=== PATIENT | female | born 1980 | race Native Hawaiian/Other Pacific Islander ===

== ENCOUNTER 2023-05-03 13:11 | Outpatient (CLI) | payer OTHER, SELFPAY | END 2023-05-03 13:12 | disposition home or self-care (01) | PROVIDERS: PCP Family Medicine; Visit Provider Physician Assistant | DX: R23.2 Flushing (principal) | CPT/HCPCS: 83001; 84443; 87086 ==

== ENCOUNTER 2024-08-15 07:56 | Outpatient (CLI) | payer BC, SELFPAY ==
--- NOTE | 2024-08-15 08:15 | CRLHL7_ITS ---
For Patients: As a result of the Century Cures Act, medical imaging exams and procedure reports are released immediately into your electronic medical record. You may view this report before your referring provider. If you have questions, please contact your health care provider. BILATERAL DIGITAL SCREENING MAMMOGRAM WITH COMPUTER-AIDED DETECTION AND TOMOSYNTHESIS CLINICAL HISTORY: Routine screening exam. COMPARISON: None. TECHNIQUE: Digital mammogram in CC and MLO projections including computer-aided detection (CAD). Tomosynthesis was used in this interpretation. BREAST COMPOSITION: There are scattered areas of fibroglandular density. FINDINGS: RIGHT Breast: No suspicious findings. LEFT Breast: Spiculated mass lateral LEFT breast 6 cm from the nipple with associated architectural distortion. IMPRESSION: LEFT breast asymmetry/mass. RECOMMENDATIONS: Additional mammographic views of the LEFT breast including 3D spot compression CC/MLO. LEFT breast ultrasound may also be required. BI-RADS Category 0: Incomplete: Need Additional Imaging Evaluation and/or Prior Mammograms for Comparison [facility] will contact the patient for follow-up. A lay language report of this examination will be provided to the patient. Dictated by Rafy Castillo MD @ 08/20/2024 9:46:33 AM jj/Dictated by: Rafy Castillo MD @ 08/20/2024 9:47:00 AM (Electronically Signed)
== END 2024-08-15 07:57 | disposition home or self-care (01) ==
LOC: MAMMO 07:59
PROVIDERS: PCP Family Medicine; Visit Provider Family Medicine
DX: Z12.31 Encounter for screening mammogram for malignant neoplasm of breast (principal); N63.20 Unspecified lump in the left breast, unspecified quadrant
CPT/HCPCS: 77063; 77067

== ENCOUNTER 2024-08-28 07:29 | Outpatient (CLI) | payer BC, SELFPAY ==
--- NOTE | 2024-08-28 | CRLHL7_ITS ---
For Patients: As a result of the Century Cures Act, medical imaging exams and procedure reports are released immediately into your electronic medical record. You may view this report before your referring provider. If you have questions, please contact your health care provider. ULTRASOUND-GUIDED LEFT AXILLARY LYMPH NODE BIOPSY CLINICAL HISTORY: Slightly enlarged LEFT axillary lymph node in the setting of a suspicious LEFT breast mass. COMPARISON STUDIES: 08/28/2024. TECHNIQUE: Real-time ultrasound with image documentation was used for targeting the LEFT axillary lesion. Core biopsy specimens were obtained using an automated gun with an 18-gauge biopsy needle. CONSENT and TIME OUT: The procedure, risks, and alternatives were explained to the patient and a consent was signed. [place] Protocol was followed including pre-procedure verification that relevant information/documentation was available, reviewed and properly matched to the patient; consent accurate and complete; and equipment and supplies available. Time Out was conducted just prior to starting procedure to verify the four required elements: patient identity, correct side/site marked (if applicable), procedure, relevant images/results properly labeled and displayed (if applicable). PROCEDURE: The patient was positioned supine on the ultrasound table. The LEFT axilla was prepped with ChloraPrep. 5 cc 1 percent lidocaine used for local anesthesia. Core samples were obtained. The specimens were placed in 10% formalin and sent to the pathology department. Pressure was held on the biopsy site until all bleeding subsided. The skin incision was closed with Steri-Strips. An ice pack was positioned over the biopsy site. Post-biopsy instructions were reviewed with the patient, and a written copy was given to her. LATERALITY: LEFT axilla. LESION: Ovoid lymph node with slightly prominent cortex in the LEFT axilla. SUSPICION FOR MALIGNANCY: Intermediate. NUMBER OF SAMPLES: 5. BIOPSY CLIP SHAPE: Oval. PROXIMITY OF CLIP TO TARGET: Within the lesion. IMPRESSION: Ultrasound-guided LEFT axillary lymph node biopsy. When the pathology report is available, an addendum to this report will be made. ACR not applicable Dictated by Rafy Castillo MD @ 08/28/2024 12:15:06 PM marco aj/Dictated by: Rafy Castillo MD @ 08/28/2024 12:15:00 PM (Electronically Signed)
--- NOTE | 2024-08-28 07:45 | CRLHL7_ITS ---
For Patients: As a result of the Cures Act, medical imaging exams and procedure reports are released immediately into your electronic medical record. You may view this report before your referring provider. If you have questions, please contact your health care provider. DIGITAL DIAGNOSTIC LEFT MAMMOGRAM USING TOMOSYNTHESIS AND COMPUTER-AIDED DETECTION LEFT BREAST ULTRASOUND CLINICAL HISTORY: LEFT breast mass/asymmetry. COMPARISON: 08/15/2024. TECHNIQUE: Digital LEFT mammogram in two projections. Tomosynthesis and CAD used in this interpretation. Real-time ultrasound imaging of LEFT breast with imaging documentation. BREAST COMPOSITION: There are scattered areas of fibroglandular density. FINDINGS: 3D spot compression CC/MLO LEFT breast mammogram images submitted. Spiculated mass with architectural distortion in the lateral LEFT breast again noted located 4 cm from the nipple. No suspicious calcifications. Targeted LEFT breast ultrasound performed at 3 o`clock 4 cm from the nipple, in this location, there is a heterogeneous solid mass with very hypoechoic internal echotexture centrally measuring 2.1 x 1.3 x 2.5 cm, located at mid depth. Mildly prominent LEFT axillary lymph node is present measuring 1.8 x 0.5 x 1.3 cm with the cortex measuring 3.2 millimeters. IMPRESSION: 1. Suspicious mass LEFT breast 3 o`clock 4 cm from the nipple measuring 2.5 cm. 2. Mildly suspicious LEFT axillary lymph node measuring 1.8 cm. RECOMMENDATIONS: Ultrasound-guided core needle biopsy of the breast mass and LEFT axillary lymph node. Results and recommendations discussed with the patient. Biopsy was performed subsequently. BI-RADS Category 5: Highly suggestive of malignancy A lay language report of this examination will be provided to the patient. Dictated by: Rafy Castillo MD @08/28/2024 9:26:21 AM /Dictated by: Rafy Castillo MD @ 08/28/2024 9:17:00 AM (Electronically Signed)
--- NOTE | 2024-08-28 08:15 | CRLHL7_ITS ---
For Patients: As a result of the Cures Act, medical imaging exams and procedure reports are released immediately into your electronic medical record. You may view this report before your referring provider. If you have questions, please contact your health care provider. PLEASE SEE DIGITAL DIAGNOSTIC LEFT MAMMOGRAM PERFORMED SAME DAY CRL:[email or web address]/Dictated by: Rafy Castillo MD @ 08/28/2024 9:16:00 AM (Electronically Signed)
--- NOTE | 2024-08-28 08:15 | CRLHL7_ITS ---
For Patients: As a result of the Century Cures Act, medical imaging exams and procedure reports are released immediately into your electronic medical record. You may view this report before your referring provider. If you have questions, please contact your health care provider. ULTRASOUND-GUIDED BREAST BIOPSY AND POST-BIOPSY DIGITAL MAMMOGRAM FOR BIOPSY MARKER PLACEMENT CLINICAL HISTORY: Suspicious mass. COMPARISON STUDIES: 08/15/2024. TECHNIQUE: Real-time ultrasound with image documentation was used for targeting the breast lesion. Core biopsy specimens were obtained using an automated gun with an 18-gauge biopsy needle. Post-biopsy CC and ML digital mammograms were obtained to document position of the biopsy marker. CONSENT and TIME OUT: The procedure, risks, and alternatives were explained to the patient and a consent was signed. [place] Protocol was followed including pre-procedure verification that relevant information/documentation was available, reviewed and properly matched to the patient; consent accurate and complete; and equipment and supplies available. Time Out was conducted just prior to starting procedure to verify the four required elements: patient identity, correct side/site marked (if applicable), procedure, relevant images/results properly labeled and displayed (if applicable). PROCEDURE: The patient was positioned supine on the ultrasound table. The breast was prepped with ChloraPrep. 8 cc of 1 percent lidocaine was used for local anesthesia. Core samples were obtained. A sterile metal biopsy clip was placed percutaneously to rosalina the lesion position within the breast. The specimens were placed in 10% formalin and sent to the pathology department. Pressure was held on the biopsy site until all bleeding subsided. The skin incision was closed with Steri-Strips. An ice pack was positioned over the biopsy site. Post-biopsy instructions were reviewed with the patient, and a written copy was given to her. LATERALITY: LEFT breast. LESION: Solid spiculated hypoechoic mass with distal acoustic shadowing measuring 2.1 x 1.3 x 2.5 cm at 3 o`clock 4 cm from the nipple. SUSPICION FOR MALIGNANCY: High. NUMBER OF SAMPLES: 5. BIOPSY CLIP SHAPE: HydroMARK. PROXIMITY OF CLIP TO TARGET: Within the lesion. IMPRESSION: Ultrasound-guided breast biopsy. When the pathology report is available, an addendum to this report will be made. ACR not applicable Dictated by: Rafy Castillo MD @08/28/2024 9:16:53 AM jj/Dictated by: Rafy Castillo MD @ 08/28/2024 11:00:00 AM (Electronically Signed)
--- NOTE | 2024-08-28 08:45 | CRLHL7_ITS ---
For Patients: As a result of the Cures Act, medical imaging exams and procedure reports are released immediately into your electronic medical record. You may view this report before your referring provider. If you have questions, please contact your health care provider. PLEASE SEE ULTRASOUND-GUIDED LEFT BREAST AND AXILLARY LYMPH NODE BIOPSY PERFORMED SAME DAY CRL:[email or web address]/Dictated by: Rafy Castillo MD @ 08/28/2024 9:26:00 AM (Electronically Signed)
== END 2024-08-28 07:30 | disposition home or self-care (01) ==
LOC: MAMMO 07:30
PROVIDERS: PCP Family Medicine; Visit Provider Physician Assistant
DX: N63.20 Unspecified lump in the left breast, unspecified quadrant (principal); C50.912 Malignant neoplasm of unspecified site of left female breast; R92.8 Other abnormal and inconclusive findings on diagnostic imaging of breast
CPT/HCPCS: 19083; 38505; 76642; 76942; 77065; 88305; 88360; 88361; 88377; A4648; A4649; G0279

== ENCOUNTER 2024-09-06 08:04 | Outpatient (CLI) | payer BC, SELFPAY ==
--- NOTE | 2024-09-06 08:15 | CRLHL7_ITS ---
For Patients: As a result of the 21st Century Cures Act, medical imaging exams and procedure reports are released immediately into your electronic medical record. You may view this report before your referring provider. If you have questions, please contact your health care provider. BILATERAL BREAST MRI WITHOUT AND WITH GADOLINIUM CLINICAL HISTORY: 43-year-old with newly diagnosed palpable carcinoma of the left breast at the 3 o`clock location, 4 cm from nipple. Spiculated mass on mammography. Measured 2.1 x 1.3 x 2.5 cm on ultrasound. Ultrasound-guided needle core biopsy of the mass and biopsy of a 1.8 cm left axillary lymph node with prominent cortex were performed on 08/28/2024. 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 Pathology of left axillary lymph node showed benign reactive lymph node. INDICATION FOR BREAST MRI: Staging of newly diagnosed breast cancer and screening of contralateral breast. Regional lymph nodes will also be assessed. COMPARISON STUDIES: Mammogram 08/14/2024. Mammogram and ultrasound dated 08/28/2024. CONTRAST: 20 cc Dotarem TECHNIQUE: The patient was positioned prone using a breast coil. Multiple imaging sequences were obtained using 1-1.5 mm thick slices with no gap. The image sequences include T2-weighted STIR in the axial plane, T1-weighted nonfat-saturated gradient echo in the axial plane, pre- and post-contrast T1-weighted FLASH 3D with fat suppression in the axial plane, and T1-weighted FLASH high resolution 3D with fat suppression in the sagittal plane. Image post-processing was performed on a [employer] workstation. Complex 3D rendering including maximum intensity projections (MIPS) and volumetric renderings were obtained to optimize visualization of the extent of pathology and relationship to the nipple, skin, and chest wall. This aids in determining feasibility of breast conservation surgery. Subtraction, multiplanar reconstruction, mean curve determination, and angiogenesis mapping were also performed. The study was technically adequate. FINDINGS: Amount of Fibroglandular Tissue: Scattered fibroglandular tissue. Breast Background Enhancement: Mild RIGHT Breast: No suspicious mass or non-mass enhancement. LEFT Breast: -Left 3 o`clock, 4 cm from nipple: 2.2 x 1.5 x 1.4 cm irregular mass with heterogeneous enhancement characteristics including rapid initial uptake and washout kinetics correlates to biopsied mass with associated marker clip. -There is 0.7 cm thin linear non-mass enhancement extending superiorly from the mass at the level of the clip. Possible post biopsy change or DCIS. -There is non-mass enhancement along the lateral aspect of the mass, extending inferiorly and towards the skin. Hyperintense on T2 and isointense to fat on T1 without fat-sat. Imaging findings are consistent with post biopsy changes. Lymph Nodes: Left axilla: 3 lymph nodes with mildly prominent cortices, including the biopsied reactive lymph node with associated biopsy marker clip, measuring 1.5 cm. Similar-appearing 0.7 cm node with 0.4 cm cortex inferior to this and a 1.5 cm similar-appearing node with 0.6 cm cortex superior to this. All nodes are lateral to the pectoralis minor muscle. Right axilla: No lymphadenopathy. No internal mammary chain nodes identified. Other Findings: None IMPRESSIONS AND RECOMMENDATIONS: 1. Unifocal 2.2 cm biopsy-proven carcinoma left 3 o`clock, 4 cm from nipple. 2. There is a 0.7 cm thin linear non-mass enhancement extending superiorly from the mass at the level of the clip. Possible post biopsy change or DCIS. Consider extending lumpectomy margin superiorly. 3. Non-mass enhancement along the lateral inferior aspect of the mass, as discussed above. Likely post biopsy changes. May consider extending lumpectomy along lateral and inferior margins. 4. Three lymph nodes in left axilla with prominent cortices, similar in appearance to the biopsied benign lymph node. Possible reactive nodes. BI-RADS Category 6: Known biopsy-proven malignancy Dictated by Adry Romo MD @ 09/10/2024 10:55:57 AM (Electronically Signed)
== END 2024-09-06 08:05 | disposition home or self-care (01) ==
LOC: MRI 08:05
PROVIDERS: PCP Family Medicine; Visit Provider Surgery
DX: C50.812 Malignant neoplasm of overlapping sites of left female breast (principal); R59.0 Localized enlarged lymph nodes
CPT/HCPCS: 77049; A9575